=== PATIENT | male | born 1970 | race American Indian/Alaskan Native ===

== ENCOUNTER 2017-10-28 10:38 | Emergency (ER) | payer SELFPAY ==
[2017-10-28 11:52] LABS: Basophils # (Auto) 0.1 K/mm3 (0.0-0.1); Basophils % (Auto) 1.2 % (0.0-1.8); Eosinophils % (Auto) 0.6 % (0.0-4.3); Hematocrit 44.5 % (35.5-45.6); Lymphocytes # (Auto) 1.3 K/mm3 (1.2-5.4); Lymphocytes % (Auto) 19.1 % (13.4-35.0); Mean Corpuscular HGB Conc 34 % (32-34); Mean Corpuscular Hemoglobin 32 pg (28-32); Mean Corpuscular Volume 94 fl (84-94); Monocytes # (Auto) 0.8 K/mm3 (0.0-0.8); Monocytes % (Auto) 11.5 % (0.0-7.3); Platelet Count 283 K/mm3 (140-440); Red Blood Count 4.74 M/mm3 (3.65-5.03); Red Cell Distribution Width 13.2 % (13.2-15.2)
[2017-10-28 12:01] LABS: Alanine Aminotransferase 43 units/L (7-56); Albumin 4.6 g/dL (3.9-5); BUN/Creatinine Ratio 15; Blood Urea Nitrogen 12 mg/dL (9-20); Hemolysis Index 6
[2017-10-28 12:25] LABS: Bilirubin,Urine NEG (Negative); Blood,Urine NEG (Negative); Color,Urine Yellow (Yellow); Mucus,Urine FEW /HPF; Protein,Urine <15 mg/dL mg/dL (Negative); Urobilinogen,Urine < 2.0 mg/dL (<2.0); WBC,Urine < 1.0 /HPF (0.0-6.0)
[2017-10-28 15:17] VITALS: BP 149/89
[2017-10-28] MEDS ORDERED: MOTRIN PO ONE (18:38)
--- NOTE | 2017-10-28 18:45 | Emergency Department Report ---
HPI - General Chief Complaint: Abdominal Pain Time Seen by Provider: 10/28/17 18:20 - HPI HPI: Tomas 19 The patient is a 47-year-old male presented with a chief complaint of right flank pain. The patient states he consumed a moderate amount of alcohol last night and this morning at approximately 07:30 felt like she had a slight hangover. The patient states then became nauseous and ran to the bathroom and vomited. The patient states while vomiting he developed sharp "catching" pain in his right flank. Patient states he stood up after he stopped vomiting and the pain improved slightly. Patient continued to notice soreness in the right flank especially when trying to get out of his car. Patient denied dysuria, hematuria or fever. Patient denied any other forms of pain. The patient currently gives his pain a score of 8/10 Location: Right flank Duration: [See above] Quality: Sharp Severity: 8/10 Modifying factors: [see above] Context: [see above] Mode of transportation: The patient drove himself to the emergency department and there are no visitors present ED Past Medical Hx - Past Medical History Previous Medical History?: Yes Hx Hypertension: Yes Additional medical history: acute renal failure - Surgical History Past Surgical History?: No Additional Surgical History: Left patella surgery - Social History Smoking Status: Never Smoker Substance Use Type: None (denies illicit drug use), Alcohol (occasional) - Medications Home Medications: Home Medications Medication Instructions Recorded Confirmed Last Taken Type Cyclobenzaprine [Flexeril] 10 mg PO TID PRN #14 tablet 10/28/17 Unknown Rx HYDROcodone/APAP 5-325 [Anderson 1 - 2 each PO Q6HR PRN #14 tablet 10/28/17 Unknown Rx 5/325] Ibuprofen [Motrin 800 MG tab] 800 mg PO Q8HR PRN #20 tablet 10/28/17 Unknown Rx Losartan/Hydrochlorothiazide 1 each PO QDAY #90 tablet 10/28/17 Unknown Rx [Hyzaar 100-12.5 Tablet] Ondansetron [Zofran ODT TAB] 8 mg PO Q8HR #20 tab.rapdis 10/28/17 Unknown Rx ED Review of Systems ROS: Stated complaint: RIGHT FLANK PAIN Other details as noted in HPI Constitutional: denies: fever Eyes: denies: eye pain ENT: denies: throat pain Cardiovascular: denies: chest pain Gastrointestinal: abdominal pain, nausea, vomiting Genitourinary: denies: dysuria Musculoskeletal: myalgia. denies: back pain Neurological: denies: headache Physical Exam - Physical Exam Vital Signs: Vital Signs 10/28/17 10/28/17 10/28/17 11:11 15:15 18:33 Temperature 98.5 F 98.4 F Pulse Rate 66 73 Respiratory 16 18 18 Rate Blood Pressure 163/101 Blood Pressure 149/89 [Right] O2 Sat by Pulse 66 L 97 97 Oximetry Physical Exam: GENERAL: The patient is well-developed well-nourished male lying on stretcher not appearing to be in acute distress. [] HEENT: Normocephalic. Atraumatic. Extraocular motions are intact. Patient has moist mucous membranes. NECK: Supple. Trachea midline CHEST/LUNGS: Clear to auscultation. There is no respiratory distress noted. HEART/CARDIOVASCULAR: Regular. There is no tachycardia. There is no gallop rub or murmur. ABDOMEN: Abdomen is soft, nontender. Patient has normal bowel sounds. There is no abdominal distention. SKIN: There is no rash. There is no edema. There is no diaphoresis. NEURO: The patient is awake, alert, and oriented. The patient is cooperative. The patient has normal speech MUSCULOSKELETAL: There is tenderness to palpation of the musculature of the right flank. The patient also exhibits pain when standing or attempting to sit down or change positions on the stretcher. There is no evidence of acute injury. ED Course Vital Signs 10/28/17 10/28/17 10/28/17 11:11 15:15 18:33 Temperature 98.5 F 98.4 F Pulse Rate 66 73 Respiratory 16 18 18 Rate Blood Pressure 163/101 Blood Pressure 149/89 [Right] O2 Sat by Pulse 66 L 97 97 Oximetry ED Medical Decision Making - Lab Data Result diagrams: 10/28/17 11:26 10/28/17 11:26 Laboratory Tests 10/28/17 10/28/17 10/28/17 11:24 11:26 11:26 WBC 6.9 RBC 4.74 Hgb 15.0 Hct 44.5 MCV 94 MCH 32 MCHC 34 RDW 13.2 Plt Count 283 Lymph % (Auto) 19.1 Pike % (Auto) 11.5 H Eos % (Auto) 0.6 Baso % (Auto) 1.2 Lymph # 1.3 Pike # 0.8 Eos # 0.0 Baso # 0.1 Seg Neutrophils % 67.6 Seg Neutrophils # 4.6 Sodium 141 Potassium 4.4 Chloride 101.3 Carbon Dioxide 29 Anion Gap 15 BUN 12 Creatinine 0.8 Estimated GFR > 60 BUN/Creatinine Ratio 15 Glucose 100 Calcium 9.0 Total Bilirubin 0.60 AST 33 ALT 43 Alkaline Phosphatase 96 Total Protein 7.7 Albumin 4.6 Albumin/Globulin Ratio 1.5 Urine Color Yellow Urine Turbidity Clear Urine pH 7.0 Ur Specific Reserve 1.013 Urine Protein <15 mg/dl Urine Glucose (UA) Neg Urine Ketones Neg Urine Blood Neg Urine Nitrite Neg Urine Bilirubin Neg Urine Urobilinogen < 2.0 Ur Leukocyte Esterase Neg Urine WBC (Auto) < 1.0 Urine RBC (Auto) 2.0 Urine Mucus Few - Radiology Data Radiology results: report reviewed (CT abdomen and pelvis), image reviewed (CT abdomen and pelvis) CT abdomen and pelvis (read by radiologist)-small left inguinal hernia containing fatty tissue. No evidence for nephrolithiasis or uropathy. - Differential Diagnosis renal colic, muscle strain, UTI, pyelonephritis, cholelithiasis Critical care attestation.: If time is entered above; I have spent that time in minutes in the direct care of this critically ill patient, excluding procedure time. ED Disposition Clinical Impression: Strain of abdominal muscle, Acute right flank pain, Nausea & vomiting, Hypertension Disposition: TO HOME OR SELFCARE Is pt being admited?: No Does the pt Need Aspirin: No Condition: Stable Instructions: Hypertension (ED), Muscle Strain (ED) Additional Instructions: Return to the emergency department immediately should you develop worsening symptoms, fever, inability to tolerate food or liquid or any other concerns. Prescriptions: Cyclobenzaprine [Flexeril] 10 mg PO TID PRN #14 tablet PRN Reason: Muscle Spasm HYDROcodone/APAP 5-325 [Anderson 5/325] 1 - 2 each PO Q6HR PRN #14 tablet PRN Reason: Pain Ibuprofen [Motrin 800 MG tab] 800 mg PO Q8HR PRN #20 tablet PRN Reason: Pain Losartan/Hydrochlorothiazide [Hyzaar 100-12.5 Tablet] 1 each PO QDAY #90 tablet Ondansetron [Zofran ODT TAB] 8 mg PO Q8HR #20 tab.rapdis Referrals: ALEC SORENSEN MD [Primary Care Provider] - 3-5 Days (Dr. Sorensen is a primary physician. Please follow-up with him to be established as a patient) Time of Disposition: 18:50
--- NOTE | 2017-10-30 14:27 | Cat Scan Report ---
FINAL REPORT EXAM: CT ABDOMEN PELVIS WO CON HISTORY: flank pain, N/V TECHNIQUE: CT abdomen and pelvis without contrast PRIORS: None. FINDINGS: No acute abnormality identified in the lung bases. No focal abnormality identified within the liver parenchyma. The spleen demonstrates normal size and attenuation. No pancreatic abnormalities seen. Kidneys demonstrate no evidence of hydronephrosis or nephrolithiasis. No ureteral calculus identified. The adrenal glands are unremarkable. Abdominal aorta is normal in caliber. No pathologically enlarged lymph nodes are identified. No signs of free fluid or free air No evidence of small bowel dilatation. The appendix is identified and is normal in size no adjacent inflammatory change seen. Urinary bladder is unremarkable. There is a small left inguinal hernia containing fatty tissue. No bowel loops within the hernia sac. IMPRESSION: Small left inguinal hernia containing fatty tissue No evidence for nephrolithiasis or obstructive uropathy.
== END 2017-10-28 19:08 | disposition home or self-care (01) ==
LOC: ED 10:38
DX: S39.011A Strain of muscle, fascia and tendon of abdomen, initial encounter (principal); R10.30 Lower abdominal pain, unspecified; R11.2 Nausea with vomiting, unspecified; I10 Essential (primary) hypertension; X58.XXXA Exposure to other specified factors, initial encounter; Y93.89 Activity, other specified; Y92.89 Other specified places as the place of occurrence of the external cause; Y99.8 Other external cause status
CPT/HCPCS: 36415; 74176; 80053; 81001; 85025